=== PATIENT | female | born 1965 | race Two or more races ===

== ENCOUNTER 2016-11-19 13:43 | Emergency (ER) | payer OTHER ==
[~2016-11-19] VITALS: Ht 152.4 cm; Wt 90.0 kg
[~2016-11-19 13:43] MED LIST: BISA-72 PO; GEMF600T3 PO; IBUP-2070 PO; LORA10TA60 PO; LORA2TAB2 PO; OMEP20 PO
[2016-11-19] MEDS ORDERED: NAPR-58 PO (13:57)
[2016-11-19] MEDS ORDERED: TRAM50TA4 PO (13:57)
[2016-11-19] MEDS ORDERED: GABA-533 PO (13:57)
[2016-11-19] MEDS ORDERED: LORazepam 2 MG/ML VIAL IM ONE (14:15)
[2016-11-19 14:37] VITALS: BP 152/92
== END 2016-11-19 14:46 | disposition home or self-care (01) ==
LOC: EMS 13:44
DX: F41.0 Panic disorder [episodic paroxysmal anxiety] (principal); F32.9 Major depressive disorder, single episode, unspecified; E03.9 Hypothyroidism, unspecified; Z87.891 Personal history of nicotine dependence
CPT/HCPCS: 96372; 99284; J2060